=== PATIENT | male | born 1995 ===

== ENCOUNTER → 2022-06-13 18:46 | Outpatient (CLI) | payer OTHER, SELFPAY ==
--- NOTE | 2022-06-13 18:53 | DI.MRI.S_ITS ---
PROCEDURE: MR WRIST LT WO/W CON INDICATIONS: SWELLING/LUMP OR MASS IN LEFT WRIST TECHNIQUE: Noncontrast coronal proton density fast spin echo and T2 fast spin echo with fat saturation; coronal 3-D gradient echo, axial T1 spin echo and T2 fast spin echo with fat saturation, axial T1 spin echo with fat saturation, sagittal T1 spin echo through the wrist. Post-contrast axial, coronal, and sagittal T1 spin echo with fat saturation through the wrist. COMPARISON: None. FINDINGS: Image quality: Images are mildly degraded by patient motion despite repeat sequences being acquired. Diagnostic information is obtained. Bones and cartilage: No suspicious osseous enhancement. The carpal bones are normally aligned. No bone marrow contusions or fractures. No evidence for avascular necrosis. Carpal ligaments: The scapholunate and lunotriquetral ligaments appear intact. On sagittal images, the pisohamate ligament appears intact. Triangular fibrocartilage complex: There is thinning of the central triangular fibrocartilage disc without a definite full-thickness tear, although evaluation is mildly compromised by patient motion on all sequences. Tendons and soft tissues: A skin marker is seen at the dorsum of the wrist overlying a lobular fluid collection that measures 2.6 x 0.6 by 1.5 cm located dorsal to the scaphoid and lunate. No solid enhancing components are seen, consistent with a benign ganglion cyst. A smaller lobular ganglion cyst is seen along the volar radial aspect of the radiocarpal articulation measuring 1.1 x 0.4 x 0.7 cm. No solid enhancing mass. The carpal tunnel structures appear normal, including the median nerve. The ulnar nerve appears normal within Guyon's canal. 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 No tendon subluxation is seen. The remaining extensor tendon compartments demonstrate normal morphology, without pathologic tendon sheath fluid. IMPRESSION: 1. A lobular ganglion cyst at the dorsum of the wrist measuring 2.6 x 0.6 x 1.5 cm corresponds to the palpable abnormality as indicated by skin marker. 2. Additional small ganglion cyst at the volar radial aspect of the wrist measuring 1.1 cm. 3. Tendinosis and suspected focal intrasubstance tearing of the extensor carpi ulnaris tendon at the level of the ulnar groove and ulnar styloid without tendon subluxation. Approved by: Uriel Onofre M.D. on 06/14/2022 at 11:07
== END ==
PROVIDERS: Referring Provider Orthopaedic Surgery; Visit Provider Orthopaedic Surgery
DX: M67.432 Ganglion, left wrist (principal)
CPT/HCPCS: 73223; A9579